=== PATIENT | male | born 1950 | race Caucasian/White ===

== ENCOUNTER → 2019-04-24 | Outpatient (REF) | LOC: M LAB LCGH 13:27 | PROVIDERS: ATTEND Family Medicine | DX: C44.629 Squamous cell carcinoma of skin of left upper limb, including shoulder (principal) ==

== ENCOUNTER → 2020-04-22 | Outpatient (CLI) | payer MEDICARE, MEDICAID ==
[~2020-04-22] MED LIST: ACET1TAB55 PO; ASPI81TA26 PO; BRIM1OPD OU; CETI10CH PO; LIDOCAINE 1% MDV 20ML VIAL As Ordered ONE; MIRT1TAB16 PO; MM S100C PO; OYST500T11 PO; PANT40TA29 PO; TIMO0.5S39 OU; TRAM50TA2 PO; TRAV04OPD OU; ZOLO100T PO
[2020-04-22 10:55] VITALS: BP 118/64
--- NOTE | 2020-04-28 07:58 | REP ---
CT-GUIDED SACRAL MASS BIOPSY The procedure was performed under the direct supervision of Dr. Gupta. The patient is a long of the [facility] and therefore, consent was obtained by the health care proxy. The sacral mass was localized using CT guidance. The skin was prepped and draped in a sterile fashion. 1% Lidocaine was used as a local anesthetic. Using CT guidance, a 15-gauge coaxial needle biopsy system was inserted and four core biopsy samples were obtained and sent to the lab. The patient tolerated the procedure well, and there were no immediate complications. After the appropriate amount of monitored convalescence, the patient was discharged from the department. R[facility]
== END ==
LOC: M IRPRO 08:19
PROVIDERS: ATTEND Internal Medicine Medical Oncology
DX: C79.51 Secondary malignant neoplasm of bone (principal)